=== PATIENT | female | born 1955 | race Caucasian/White ===

== ENCOUNTER → 2017-06-03 | Outpatient (CLI) | payer BC ==
[~2017-06-03] MED LIST: BYSTOLIC10 MG PO; CRESTOR10 MG PO; CYMBALTA30 MG PO; DEXILANT60 MG PO; DICYCLOMINE HCL20 MG PO; FEXOFENADINE H180 MG PO; HYDROCHLOROTH12.5 M1 PO; LEXAPRO10 MG PO; MECLIZINE HCL25 MG PO; METHOCARBAMOL500 MG PO; MOBIC7.5 MG PO; NASONEX
== END ==
LOC: MAMMO 12:43
PROVIDERS: ATTEND Obstetrics & Gynecology
DX: Z12.31 Encounter for screening mammogram for malignant neoplasm of breast (principal)
CPT/HCPCS: 77067

== ENCOUNTER → 2018-02-01 | Day surgery (SDC) | payer BC ==
[~2018-02-01] MED LIST changes: +FENTANYL CITRATE/PF 100MCG/2 ML INJ ONE; +HYOSCYAMINE SULFATE 0.5 MG/ML INJ ONE; +MECLIZINE HCL12.5 MG PO; +MELOXICAM7.5 MG PO; +METHOCARBAMOL750 MG PO; +MIDAZOLAM HCL 2 MG/2 ML VIAL ONE; +PROPOFOL IV EMULSION 10 MG/ML 50 ML VIAL ONE
[2018-02-01 09:30] VITALS: BP 124/73
--- NOTE | 2018-02-01 09:54 | Operative Report ---
DATE OF PROCEDURE: February 01, 2018 REFERRING PHYSICIAN: Dr. Timo Rodriguez PROCEDURES PERFORMED 1. Esophagogastroduodenoscopy with biopsies. 2. Colonoscopy with polypectomy. INDICATIONS FOR EGD: Dyspepsia. INDICATIONS FOR COLONOSCOPY: Surveillance colonoscopy, history of colon polyps. MEDICATION: Patient was done under MAC. Please see anesthesiologist's note. PROCEDURE: With the patient in the left lateral decubitus position, the flexible fiberoptic Olympus gastroscope was introduced into the esophagus under direct visualization without any difficulty. There was some patchy erythema noted in the distal esophagus. The scope was then advanced with ease into the stomach, and the mucosa overlying the antrum and the body revealed some patchy erythema and low-grade to moderate edema, and biopsies were obtained and sent to stain for H. pylori. Hyperplastic-appearing polyps in the body of the stomach were noted. Some were partially excised with the cold biopsy forceps. The pylorus was of normal contour and shape. It was intubated with ease, and the scope was advanced all the way to the 2nd portion of the duodenum. The scope was then withdrawn slowly, and the mucosa overlying the proximal 2nd portion and the duodenal bulb appeared to be within normal limits. The scope was then withdrawn back into the stomach and retroflexed. Mucosa overlying the fundus and cardia appeared to be within normal limits. The scope was then straightened out. Stomach was decompressed. The scope was subsequently withdrawn. Patient tolerated the procedure well. IMPRESSION 1. Distal esophagitis, mild. 2. Gastritis, biopsied. Biopsies sent to stain for H. pylori. 3. Gastric polyps, hyperplastic-appearing, some partially excised with cold biopsy forceps. PLAN: Follow up histology. Continue Dexilant 60 mg 1 p.o. q.a.m. a.c. The patient was then turned around. After adequate lubrication of the anal canal, a flexible fiberoptic Olympus colonoscope was inserted into the rectum with ease and advanced all the way to the cecum. It was then withdrawn slowly. Mucosa overlying the cecum, ascending colon and transverse colon appeared to be within normal limits. Some diverticular disease was noted in the distal descending and the sigmoid colon. One polyp was hot biopsied from the sigmoid. Two polyps were hot biopsied from the rectum. The scope was then retroflexed into the distal rectum, and small internal hemorrhoids were noted, none of which was actively bleeding. The scope was then straightened out. It was subsequently withdrawn. Patient tolerated the procedure well. IMPRESSION 1. Diverticulosis. 2. Sigmoid colon polyp, hot biopsied. 3. Rectal polyps times 2, hot biopsied. 4. Internal hemorrhoids, none actively bleeding. PLAN: Follow up histology. Initiate high-fiber, low-fat diet. Initiate high-fiber supplement. Patient will need a followup colonoscopy in 3 to 5 years. Job#: [id number] cc:TIMO RODRIGUEZ MD
--- OUTSIDE RECORDS SUMMARY | 2018-02-07 12:30 | XMS REPORT | Clinical Summary ---
Author Author [facility] Address Unknown Phone Unavailable Care Team Providers Care Functional Director Name Role Phone Poornima Bishop MD PCP Allergies No Known Allergies Current Medications Prescription Sig. Disp. Refills Start End Date Status Date dexlansoprazole Take 60 mg by mouth Active (DEXILANT) 60 mg daily. capsuleIndications: Gastroesophageal reflux disease with esophagitis nebivolol (BYSTOLIC) 10 Take 1 tablet by mouth 04/28/19 Active MG tabletIndications: T daily. 16 wave inversion in EKG fexofenadine (LOYDA) Take 180 mg by mouth Active 180 MG tabletIndications: daily. Environmental allergies gabapentin (NEURONTIN) Take 1 capsule by mouth 3 05/21/19 Active 300 mg (three) times a day. 17 capsuleIndications: Herpes zoster conjunctivitis of left eye, Hot flashes, Post herpetic neuralgia rosuvastatin (CRESTOR) 10 Take 1 tablet by mouth 04/12/20 Active MG tabletIndications: daily. 16 Pure hypercholesterolemia meclizine (ANTIVERT) 25 Chew 25 mg daily. Active mg chewable tablet methocarbamol (ROBAXIN) Take 500 mg by mouth 2 Active 500 MG tablet (two) times a day. meloxicam (MOBIC) 7.5 mg Take 1 tablet by mouth 2 04/28/19 Active tablet (two) times a day. 16 dicyclomine (BENTYL) 20 Take 20 mg by mouth 3 Active mg tabletIndications: (three) times a day. 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 Nicole; however patient still having issues and would like a second opinion. T wave inversion in EKG 06/25/2016 Overview: Referred to Dr. Medina - echo done - no results available; will obtain; per patient stable Post herpetic neuralgia 06/25/2016 Irritable colon 06/25/2016 Gastroesophageal reflux disease with esophagitis 06/25/2016 Body mass index (BMI) of 40.0-44.9 in adult (HCC) 11/14/2015 Depression 11/14/2015 Body fluid retention 11/14/2015 Overview: On diuretic Borderline diabetes mellitus 11/14/2015 Pure hypercholesterolemia 11/14/2015 Hot flashes 05/02/2015 Overview: Off effexor; now on lexapro and gabapentin with moderate relief. Immunizations Name Dates Previously Given Next Due Tdap 11/28/2015 Family History Medical History Relation Name Comments Heart disease Father Hypertension Father Alzheimer's disease Mother Relation Name Status Comments Father Mother Social History Tobacco Use Types Packs/Day Years Used Date Never Smoker Smokeless Tobacco: Never Used Alcohol Use Drinks/Week oz/Week Comments No Sex Assigned at Date Recorded Not on file Last Filed Vital Signs Not on file Plan of Treatment Health Maintenance Due Date Last Done Comments CERVICAL CANCER SCREENING 1974 BREAST CANCER SCREENING 12/11/2003 COLON CANCER SCREENING 12/11/2003 SHINGRIX VACCINE (#1) 12/11/2003 ZOSTER VACCINE 2013 INFLUENZA VACCINE 11/23/2017 Results Not on fileafter 01/31/2017 Insurance Payer Benefit Subscriber ID Type Phone Address Plan / Group BCBS BCBS xxxxxxxxxxxxxxx PPO CHOICE PPO/[employer] PPO
--- OUTSIDE RECORDS SUMMARY | 2018-02-07 12:30 | XMS REPORT ---
Author Author [facility] Address Unknown Phone Unavailable Care Team Providers Care Senior Research Engineer Name Role Phone DIANNA NIX Unavailable Unavailable ADEN NAQVI Unavailable Unavailable Problems This patient has no known problems. Allergies, Adverse Reactions, Alerts This patient has no known allergies or adverse reactions. Medications This patient has no known medications. Results Test Description Test Time Test Comments Text Results Atomic Results Result Comments MAMMOGRAM DIGITAL SCR BI [place] [address] Patient Name: RIA BENNETT MR #: [id number] : 1955 Age/Sex: 61/F Req #: [id number] Adm Physician: Ordered by: DIANNA NIX MD Report #: [id number] Location: MAMMO Room/Bed: Procedure: [id number] MG/MAMMOGRAM DIGITAL SCR BI Exam Date: 06/03/17 Exam Time: 1300 REPORT STATUS: Signed #[id number] - MGSCRNBI #BILATERAL SCREENING MAMMOGRAM WITH CAD: 06/03/2017 CLINICAL: Routine screening. Comparison is made to exams dated: 01/14/2014 mammogram, 06/02/2012 mammogram, 04/27/2011 mammogram - [facility] and 12/04/2015 mammogram - [facility]. Current study contains 4 films. The tissue of both breasts is predominantly fatty. Current study was also evaluated with a Computer Aided Detection (CAD) system. There are benign calcifications in both breasts. There also are post operative findings in both breasts with bilateral scar markers present. No significant masses, calcifications, or other findings are seen in either breast. There has been no significant interval change. IMPRESSION: BENIGN There is no mammographic evidence of malignancy. A 1 year screening mammogram is recommended. The patient will be notified by letter of the results. Sadiq Chowdary Jr., D.O. cw/:06/13/2017 12:49:49 [employer] Sewer: Monique JIMENEZ(R)(M), [facility] letter sent: Compared to Prior B9 Mammogram BI-RADS: 2 Benign Dictated By: SADIQ CHOWDARY DO 1249 Transcribed By: JENY on 06/13/17 1249 COPY TO: DIANNA NIX MD SP LUMBAR AP LATERAL 2-3VWS [place] [address] Patient Name: RIA BENNETT MR #: [id number] : 1955 Age/Sex: 61/F Req #: [id number] [facility] Physician: Ordered by: ADEN NAQVI MD Report #: [id number] Location: ER Room/Bed: Procedure: [id number] DX/SP LUMBAR AP LATERAL 2-3VWS Exam Date: 02/11/17 Exam Time: 1555 REPORT STATUS: Signed PROCEDURE: X-RAY LUMBAR SPINE, TWO VIEWS COMPARISON: 02/15/12 INDICATIONS: FALL, BACK PAIN FINDINGS: There are 5 lumbar-type vertebral bodies. The vertebral bodies are well-aligned without evidence of spondylolisthesis. There are no fractures, lytic or blastic lesions. Minimal L1 superior endplate compression deformity which was also seen on prior x-ray in 2011. Degenerative changes of lower thoracic spine and L5-S1. There is also lower lumbar spine facet arthropathy. CONCLUSION: No evidence of acute fracture or subluxation of lumbar spine. Degenerative changes. Minimal chronic L1 superior endplate compression deformity. Dictated by: Dao Krause M.D. on 02/11/2017 at 16:52 Electronically approved by: Dao Krause M.D. on 02/11/2017 at 16:52 Dictated By: DAO KRAUSE MD 51 Transcribed By: MICHAEL on 02/11/171651 COPY TO: ADEN NAQVI MD CERVICAL SPINE 4 OR 5 VIEWS [place] [address] Patient Name: RIA BENNETT MR #: [id number] : 1955 Age/Sex: 61/F Req #: [id number] Adm Physician: Ordered by: ADEN NAQVI MD Report #: [id number] Location: ER Room/Bed: Procedure: [id number] DX/CERVICAL SPINE 4 OR 5 VIEWS Exam Date: Exam Time: REPORT STATUS: Signed PROCEDURE: C-SPINE COMPLETE COMPARISON: None. INDICATIONS: FALL, NECK PAIN FINDINGS: The lateral view is visualized from the skull base to C6. Limited for C7-T1 on lateral view. The vertebral bodies are well-aligned. Vertebral body heights are maintained. There are no fractures, lytic or blastic lesions. Straightening of normal cervical spine lordosis. The C1/C2-odontoid interval is normal. Degenerative changes of the cervical spine, especially at C5-C6 and C6-C7. Increased prevertebral soft tissue thickening, up to 1.6 cm. CONCLUSION: 1. Straightening of normal cervical spine lordosis, may be positional or represent muscle spasm. 2. Increased prevertebral soft tissue thickening. Underlying lesion/abscess cannot be excluded. Recommend soft tissue neck CT for further evaluation. Dictated by: Dao Krause M.D. on 02/11/2017 at 16:39 Electronically approved by: Dao Krause M.D. on 02/11/2017 at 16:39 Dictated By: DAO KRAUSE MD 38 Transcribed By: MICHAEL on 02/11/171638 COPY TO: ADEN NAQVI MD KNEE LEFT THREE VIEWS [place] [address] Patient Name: RIA BENNETT MR #: [id number] : 1955 Age/Sex: 61/F Req #: [id number] Adm Physician: Ordered by: ADEN NAQVI MD Report #: [id number] Location: ER Room/Bed: Procedure: [id number] DX/KNEE LEFT THREE VIEWS Exam Date: 02/11/17 Exam Time: 1555 REPORT STATUS: Signed PROCEDURE: KNEE LEFT THREE VIEWS COMPARISON: None. INDICATIONS: FALL, LEFT KNEE PAIN FINDINGS: There are no fractures, dislocations, lytic or blastic lesions. The bones are well-mineralized. No suprapatellar joint effusion. The soft-tissues are unremarkable. CONCLUSION: No acute fracture or dislocation of the left knee. Dictated by: Dao Krause M.D. on 02/11/2017 at 16:53 Electronically approved by: Dao Krause M.D. on 02/11/2017 at 16:53 Dictated By: DAO KRAUSE MD 52 Transcribed By: MICHAEL on 02/11/171652 COPY TO: ADEN NAQVI MD FOREARM LEFT 2 VIEW [place] [address] Patient Name: RIA BENNETT MR #: [id number] : 1955 Age/Sex: 61/F Req #: [id number] Adm Physician: Ordered by: ADEN NAQVI MD Report #: [id number] Location: ER Room/Bed: Procedure: [id number] DX/FOREARM LEFT 2 VIEW Exam Date: 02/11/17 Exam Time: 1555 REPORT STATUS: Signed PROCEDURE: X-RAY LEFT FOREARM, TWO VIEWS COMPARISON: None. INDICATIONS: FALL, LEFT ARM PAIN FINDINGS: There are no fractures, dislocations, lytic or blastic lesions. The soft-tissues are unremarkable. No elbow joint effusion. CONCLUSION: No acute fracture or dislocation of the left forearm. Dictated by: Dao Krause M.D. on 02/11/2017 at 17:02 Electronically approved by: Dao Krause M.D. on 02/11/2017 at 17:02 Dictated By: DAO KRAUSE MD 01 Transcribed By: MICHAEL on 02/11/171701 COPY TO: ADEN NAQVI MD ELBOW LEFT COMPLETE [facility] [address] [place] [address] Patient Name: RIA BENNETT MR #: [id number] : 1955 Age/Sex: 61/F Req #: [id number] Adm Physician: Ordered by: ADEN NAQVI MD Report #: [id number] Location: ER Room/Bed: Procedure: [id number] DX/ELBOW LEFT COMPLETE Exam Date: 02/11/17 Exam Time: 1555 REPORT STATUS: Signed PROCEDURE: X-RAY LEFT ELBOW, COMPLETE COMPARISON: None. INDICATIONS: FALL LEFT ARM PAIN FINDINGS: There are no fractures, dislocations, lytic or blastic lesions. The bones are well-mineralized. The soft-tissues are unremarkable. No elbow joint effusion. CONCLUSION: No acute fracture or dislocation of the left elbow. Dictated by: Dao Krause M.D. on 02/11/2017 at 17:03 Electronically approved by: Dao Krause M.D. on 02/11/2017 at 17:03 Dictated By: DAO KRAUSE MD 02 Transcribed By: MICHAEL on 02/11/171702 COPY TO: ADEN NAQVI MD
== END | disposition home or self-care (01) ==
LOC: OR 05:55
PROVIDERS: ATTEND Internal Medicine Gastroenterology
DX: K29.70 Gastritis, unspecified, without bleeding (principal); K63.5 Polyp of colon; K62.1 Rectal polyp; K31.7 Polyp of stomach and duodenum; K57.30 Diverticulosis of large intestine without perforation or abscess without bleeding; K20.8 Other esophagitis; K21.9 Gastro-esophageal reflux disease without esophagitis; K64.8 Other hemorrhoids; I10 Essential (primary) hypertension; H91.90 Unspecified hearing loss, unspecified ear; E78.5 Hyperlipidemia, unspecified; F95.9 Tic disorder, unspecified; Z01.810 Encounter for preprocedural cardiovascular examination; Z68.41 Body mass index [BMI] 40.0-44.9, adult
CPT/HCPCS: 43239; 45384; 93005; J1980; J2250; 45378